=== PATIENT | female | born 1940 | race Caucasian/White ===

== ENCOUNTER 2017-01-19 02:46 | Emergency (ER) | payer MEDICARE, BC ==
[~2017-01-19] VITALS: Ht 152.4 cm; Wt 50.0 kg
[2017-01-19 02:47] VITALS: PULSE 0; RESP 18; Ht 152.4 cm; Wt 50.0 kg
--- NOTE | 2017-01-19 03:16 | ERD ---
ER Documentation Chief Complaint Date/Time DATE: 01/19/17 TIME: 03:14 Chief Complaint HPI This is a 76-year-old female brought in by rescue for cardiac arrest. Patient initially was a cough chest pain. Upon arrival he did a 12-lead showed STEMI. They lost pulses. They did not intubate or establish IV access on room. Patient was actively and ACLS upon arrival to the emergency department. ROS All systems reviewed and are negative except as per history of present illness. Physical Exam Physical Exam Const: [] Head: Atraumatic Eyes: Normal Conjunctiva ENT: Normal External Ears, Nose and Mouth. Neck: Full range of motion..~ No meningismus. Resp: Clear to auscultation bilaterally Cardio: No pulse Abd: Distended Skin: No petechiae or rashes Back: No midline or flank tenderness Ext: No cyanosis, or edema Neur: Obtunded Psych: Deferred Procedures/MDM Medical decision-making: This is an unfortunate 76-year-old female who suffered cardiopulmonary arrest. Despite optimal ACLS protocol and intubation and airway stabilization, the patient . Family is at the bedside has been made aware. Endotracheal Intubation by me: Pre assessment performed. See preceding note for details. Pre-oxygenation performed with 100% oxygen RSI: Performed w/o complication or hypoxic events. Medications as ordered. Blade: [Mac 4] ET Tube: 7.5 cm Depth: 22 cm at the lip Intubation confirmed by colorimetric CO2, equal breath sounds, quiet over the stomach. Critical Care: Time: 32 minutes Treatments/Evaluations: Close monitoring and treatment of unstable vital signs, cardiorespiratory, and neurologic status, while maintaining tight balance of fluid, respiratory, and cardiac interventions. Time of is 3:02 AM Departure Diagnosis: Primary Impression: Cardiac arrest Condition: Critical SERA REYNOLDS Jan 19, 2017 03:16
== END 2017-01-19 05:26 | disposition expired ==
LOC: E/R 02:46
DX: I46.9 Cardiac arrest, cause unspecified (principal)
CPT/HCPCS: 31500; 92950